=== PATIENT | female | born 1940 | race Caucasian/White ===

== ENCOUNTER → 2016-10-23 | Outpatient (CLI) | payer MEDICARE, OTHER ==
[~2016-10-23] MED LIST: AMLO10TA62 PO; ATOR40TA64 PO; CARV12.52 PO; ESTR42.53 VAGINALLY; GABA-336 PO; LEVE500T26 PO; METF500T4 PO; OMEP-122 PO; PROP10DR5 BOTH EYES; TELM40TA2 PO; TIOT4MIS5 ORAL INH; [UNRECOGNIZED DRUG - CODE] OP; iron PO
== END ==
LOC: WC.BC 12:56
DX: Z12.31 Encounter for screening mammogram for malignant neoplasm of breast (principal); N64.59 Other signs and symptoms in breast
CPT/HCPCS: 77063; G0202